=== PATIENT | female | born 1965 | race Caucasian/White ===

== ENCOUNTER 2017-05-24 05:07 | Observation (INO) | payer OTHER ==
[2017-05-17 09:49] VITALS: BMI 37.0
--- NOTE | 2017-05-17 10:22 | PAT Medication Instructions ---
Service Date May 17, 2017. Current Home Medication List Amitriptyline Hcl (Elavil), 75 MG PO HS Aspirin (Aspirin Ec), 81 MG PO QAM Bupropion (Wellbutrin Sr), 150 MG PO BID Esomeprazole Magnesium (Nexium), 40 MG PO QAM Hydrochlorothiazide (Hctz), 25 MG PO QAM Insulin Glargine (Lantus), 23 UNITS SC HS Liraglutide (Victoza), 1.2 MG INJ QAM Meloxicam (Mobic), 7.5 MG PO BID Ondansetron Hcl (Zofran), 4 MG PO Q6H PRN for N Pregabalin (Lyrica), 75 MG PO BID Ranitidine (Zantac), 300 MG PO HS Tramadol (Ultram), 50 MG PO Q6H PRN for N [Inhaler], 2 PUFFS INH PRN [Inhaler], 2 PUFFS INH PRN Medication Instructions For Your Scheduled Surgery Aspirin (Aspirin Ec), 81 MG PO QAM (check with surgeon/hogshead opener for instructions) Meloxicam (Mobic), 7.5 MG PO BID (check with surgeon for instructions) - Hold the following medications the morning of surgery: Hydrochlorothiazide (Hctz), 25 MG PO QAM - Take the following medications the morning of surgery with a sip of water: [Inhaler], 2 PUFFS INH PRN Tramadol (Ultram), 50 MG PO Q6H PRN for N (okay to take up to 4 hours prior to surgery if needed) Ondansetron Hcl (Zofran), 4 MG PO Q6H PRN for N (if needed) Pregabalin (Lyrica), 75 MG PO BID Liraglutide (Victoza), 1.2 MG INJ QAM Esomeprazole Magnesium (Nexium), 40 MG PO QAM Bupropion (Wellbutrin Sr), 150 MG PO BID - Take the following medications as scheduled the night before surgery: [Inhaler], 2 PUFFS INH PRN Tramadol (Ultram), 50 MG PO Q6H PRN for N (if needed) Ranitidine (Zantac), 300 MG PO HS Ondansetron Hcl (Zofran), 4 MG PO Q6H PRN for N (if needed) Pregabalin (Lyrica), 75 MG PO BID Insulin Glargine (Lantus), 23 UNITS SC HS Bupropion (Wellbutrin Sr), 150 MG PO BID Amitriptyline Hcl (Elavil), 75 MG PO HS If you have any questions please call us at [phone] or [phone] or [phone]
[2017-05-17 10:57] LABS: BASO % 0.8 %; BASO ABS # 0.04 K/uL (0-0.2); COMPLETE YES; EOS % 2.5 %; IG% 0.2 %; LYMPH % 24.5 %; LYMPH ABS # 1.29 K/uL (1.2-3.4); MEAN CELL VOLUME 92.2 fL (80-100); MEAN CORPUSCULAR HEMOGLOBIN 31.6 pg (25-34); MEAN CORPUSCULAR HGB CONC 34.2 g/dl (32-36); MONO % 4.9 %; NEUT % 67.1 %; PLATELET COUNT 186 K/uL (130-400); RED BLOOD COUNT 4.88 M/uL (4.2-5.4); WHITE BLOOD COUNT 5.27 K/uL (4.8-10.8)
[2017-05-17 11:05] LABS: PROTHROMBIN TIME (PATIENT) 10.8 SECONDS (9.0-12.0)
[2017-05-17 11:27] LABS: BUN/CREATININE RATIO 18.5 (10-20); CALCIUM 9.1 mg/dl (8.5-10.1); CREATININE 0.95 mg/dl (0.60-1.20); POTASSIUM 4.1 mmol/L (3.5-5.1)
[~2017-05-24] VITALS: Ht 160 cm; Wt 97.0 kg
[2017-05-24] VITALS (8 sets, daily range): BP systolic 125–178; BP diastolic 71–85; PULSE 90–102; TEMP 36.3–37; O2SAT 92–97; Ht 160 cm; Wt 97.0 kg
[~2017-05-24 05:07] MED LIST: AMT50 PO; ASPI81TA28 PO; BUPR-79 PO; HYDR25TA4 PO; INHALER INH; INSDGI SC; LIRA18IN INJ; MELO7.5T5 PO; NXM/40 PO; ONDA4TAB46 PO; PREG1CAP28 PO; RANI300T2 PO; TRAM-10 PO; [UNRECOGNIZED DRUG - REMARK] SCH
[2017-05-24] MEDS ORDERED: UMEC1INH INH (05:44)
[2017-05-24] MEDS ORDERED: VNTHFA/IN INH (05:44)
[2017-05-24] MEDS ORDERED: LACTATED RINGER'S 1000ML 1,000 ML IV SCH (06:00)
[2017-05-24] MEDS ORDERED: ENOXAPARIN 40 MG/0.4 ML SYR SQ SCH (06:00)
[2017-05-24] MEDS ORDERED: LACTATED RINGER'S 1000ML 500 ML IV ONE (06:00)
[2017-05-24] MEDS ORDERED: CEFAZOLIN 2000 MG/60 ML D5W IV SCH (06:00)
--- NOTE | 2017-05-24 06:55 | History & Physical Bridge Note ---
H&P Re-Evaluation Bridge Note: I have examined the patient, reviewed the History & Physical and in the interval since the performance of the History & Physical I have noted the following changes of clinical significance: New HA1c down to 7.2 with goal of 7. Discussed whether to proceed; I feel since she is trending in the right direction it is reasonable. She was counseled that blood sugar control over the next 6 weeks will be critical to obtaining a good result and minimizing risk of wound healing problems or infection. She states she is no longer smoking.
[2017-05-24] MEDS ORDERED: DEXAMETHASONE SOD INJ 4 MG/ML VIAL ONE (07:33)
[2017-05-24] MEDS ORDERED: PROPOFOL IV EMULSION 10 MG/ML 20 ML VIAL IV ONE ×10 (07:33→11:43)
[2017-05-24] MEDS ORDERED: LIDOCAINE HCL 2% 2 ML VIAL (20MG/ML) ONE (07:33)
[2017-05-24] MEDS ORDERED: GLYCOPYRROLATE INJ 0.2 MG/ML VIAL ONE (07:33)
[2017-05-24] MEDS ORDERED: ROCURONIUM BROMIDE 10 MG/ML 5 ML VIAL ONE (07:33)
[2017-05-24] MEDS ORDERED: NEOSTIGMINE METHYLSULFATE 5 MG/5 ML SYR ONE (07:33)
[2017-05-24] MEDS ORDERED: ONDANSETRON INJ 2 MG/ML 2 ML VIAL ONE (07:33)
[2017-05-24] MEDS ORDERED: MIDAZOLAM HCL 1 MG/ML 2ML VIAL ONE ×2 (07:34→08:47)
[2017-05-24] MEDS ORDERED: FENTANYL CITRATE INJ 50 MCG/1 ML 2 ML VIAL ONE ×2 (07:34→13:03)
[2017-05-24] MEDS ORDERED: FENTANYL CITRATE INJ 50 MCG/1 ML 2 ML VIAL IV PRN (07:45)
[2017-05-24] MEDS ORDERED: PROMETHAZINE HCL INJ 12.5 MG in SODIUM CHLORIDE 0.9% 50ML 50 ML IV PRN ×2 (07:45→12:30)
[2017-05-24] MEDS ORDERED: HYDROmorphone INJ 1 MG/ML SYR IV PRN (07:45)
[2017-05-24] MEDS ORDERED: LIDOCAINE/EPINEPHRINE 1% 20 ML VIAL ONE (07:45)
[2017-05-24] MEDS ORDERED: HYDROmorphone INJ 2 MG/ML SYR/VIAL ONE (07:45)
[2017-05-24] MEDS ORDERED: ATROPINE SULFATE 0.1 MG/ML 5ML SYR IV PRN (07:45)
[2017-05-24] MEDS ORDERED: ONDANSETRON INJ 2 MG/ML 2 ML VIAL IV PRN ×2 (07:45→12:30)
[2017-05-24] MEDS ORDERED: EpHEDrine SULFATE INJ 50 MG/ML AMP IV PRN (07:45)
[2017-05-24] MEDS ORDERED: BUPIVACAINE 0.25% 30 ML VIAL ONE (07:46)
[2017-05-24] MEDS ORDERED: REMIFENTANIL 1 MG VIAL ONE ×3 (07:53→07:54)
[2017-05-24] MEDS ORDERED: KETAMINE HCL INJ 50 MG/ML 10 ML VIAL ONE (08:10)
[2017-05-24] MEDS ORDERED: WATER, STERILE FOR INJ 10 ML VIAL ONE (11:46)
[2017-05-24] MEDS ORDERED: D5W AND 1/2NSS + 20MEQ KCL 1,000 ML IV SCH (12:25)
--- NOTE | 2017-05-24 12:25 | [facility] Post Operative Brief Note ---
Immediate Operative Summary Operative Date May 24, 2017. Pre-Operative Diagnosis Bilateral Symptomatic Macromastia Post-Operative Diagnosis Same as preoperative Procedure(s) Performed Bilateral Breast Reduction Surgeon Dr. Marianne Guerrero Generator Technician Surgeon(s) None per surgeon Estimated Blood Loss 50ml Findings right NAC mildly venous congested; sutures released and loose approximation performed with good perfusion, left NAC pink and viable Specimens A.) Left Breast Tissue, weight= 1036 grams B.) Right Breast Tissue, weight = 936 grams Drains IZABELA x2 Anesthesia GET Complication(s) None Disposition Recovery Room / PACU
[2017-05-24] MEDS ORDERED: DiphenhydrAMINE HCL 50 MG/ML VIAL IV PRN (12:30)
[2017-05-24] MEDS ORDERED: OXYCODONE/ACETAMINOPHEN 5-325 TAB PO PRN (12:30)
[2017-05-24] MEDS ORDERED: ALBUTEROL HFA 8 GM INHALER INH PRN (12:30)
[2017-05-24] MEDS ORDERED: ONDANSETRON 4 MG TAB PO PRN (12:30)
[2017-05-24] MEDS ORDERED: MoRPHine SULFATE 4 MG/ML 1 ML CARP\\VIAL IV PRN ×2 (12:30)
[2017-05-24] MEDS ORDERED: OXAZEPAM 10MG CAP PO PRN (12:30)
[2017-05-24] MEDS ORDERED: TRAMADOL HCL 50 MG TAB PO PRN (12:30)
[2017-05-24] MEDS ORDERED: ACETAMINOPHEN 325 MG TAB PO PRN (12:30)
[2017-05-24] MEDS ORDERED: MoRPHine SULFATE 2 MG/ML CARP IV PRN (12:30)
[2017-05-24] MEDS ORDERED: HYDROmorphone INJ 1 MG/ML SYR ONE (13:03)
[2017-05-24] MEDS ORDERED: IV FLUIDS COMPLETED PRN (13:45)
[2017-05-24] MEDS ORDERED: NURSING VERBAL MED ORDER ONE (14:00)
--- NOTE | 2017-05-24 14:03 | Anesthesiology Progress Note ---
Anesthesia Post Op Note Date & Time May 24, 2017 at 14:03 Vital Signs Pain Intensity: 2 Vital Signs Past 12 Hours Date Time Temp Pulse Resp B/P (MAP) Pulse Ox O2 Delivery O2 Flow Rate FiO2 05/24/17 13:55 94 10 120/73 93 Nasal Cannula 2 05/24/17 13:45 92 12 126/73 95 Nasal Cannula 2 05/24/17 13:35 91 12 125/74 97 Nasal Cannula 2 05/24/17 13:25 95 22 135/87 97 Nasal Cannula 2 05/24/17 13:15 94 15 131/79 95 Nasal Cannula 2 05/24/17 13:05 94 17 148/77 96 Nasal Cannula 2 05/24/17 12:55 100 17 148/77 93 Nasal Cannula 2 05/24/17 12:45 36.2 94 17 143/81 95 Nasal Cannula 2 05/24/17 05:49 36.6 90 18 178/82 (114) 97 Room Air Notes Mental Status: alert / awake / arousable, participated in evaluation Pt Amnestic to Procedure: Yes Nausea / Vomiting: adequately controlled Pain: adequately controlled Airway Patency, RR, SpO2: stable & adequate BP & HR: stable & adequate Hydration State: stable & adequate Anesthetic Complications: no major complications apparent
[2017-05-24] MEDS ORDERED: GLUCOSE 10 TABS/TUBE PO PRN ×2 (14:15→20:45)
[2017-05-24] MEDS ORDERED: GLUCAGON FOR INJ 1 MG VIAL SQ PRN ×2 (14:15→20:45)
[2017-05-24] MEDS ORDERED: GLUCOSE 40% GEL 15 GM TUBE PO PRN ×2 (14:15→20:45)
[2017-05-24] MEDS ORDERED: DEXTROSE 50% 50 ML SYR IV PRN ×2 (14:15→20:45)
[2017-05-24] MEDS: NSS + 20MEQ KCL 1000ML 1,000 ML IV SCH (16:15)
[2017-05-24] MEDS: CEFAZOLIN IV 2,000 MG in DEXTROSE 5% 50ML 50 ML IV SCH (16:16)
--- NOTE | 2017-05-24 18:15 | Progress Note ---
Progress Note Date of Service May 24, 2017. Progress Note PO check Doing ok. Pain controlled, complains of nausea afebrile VSS dressings c/d/i bilaterally, scant drainage around right NAC NAC pink and viable, with sensation bilaterally JPs right 10/left 20 cc serosanguinous stable post op drains out in am will consult hospitalist for assistance with blood glucose control
--- NOTE | 2017-05-24 20:40 | Medical Consult ---
Consultation Note Date of Service May 24, 2017. Consultation Note HOSPITALIST CONSULT NOTE: DATE OF CONSULT: 05/24/17 DATE OF ADMISSION: 05/24/17 REASON FOR CONSULT: Post op management for DM in patient with B/L breast reduction HPI This is a 51 year old F with PMH of DM, IDDM, COPD, GED, HLD is admitted under plastic surgery for B/L breast reduction surgery. She is POD # 0 . Pain is controlled. Does have some hand numbness from anaesthesia effect Had 2-3 episodes of vomiting today- better now. No abdominal pain, fever, chills. We have been consulted for DM management post operatively PMH DM, IDDM, HTN, HLP, COPD, Mild,GERD, Depression PSH C section, cholecystectomy, cath , EGD, lap adhesiolysis, Total ab hysterectomy , salpingo oopherectomy SOCIAL HISTORY Ex smoker, no alcohol abuse FAMILY HISTORY Non contributory REVIEW OF SYSTEM Negative except mentioned in HPI. MEDICATIONS Reviewed ALLERGIES Reviewed PHYSICAL EXAMINATION Gen- AAOX3, no distress HEENT- AT/NC, no discharge from eyes/nose/ear Neck- Short neck Lungs- Back- no wheezing, rhonchi, rales Heart- S1, S2 normal Chest- B/L breast reduction surgery Ext- no edema Abd- soft, non tender, non distended, BS present ASSESSMENT AND PLAN S/P BILATERAL BREAST REDUCTION SURGERY POD # 0. Post operative nausea, vomiting present- IV zofran PRN -Pain mx, wound care per primary team DM, IDDM -At home on lantus 23 units and victoza -Continue with basal insulin, ISS, Accuchecks HTN-Stable -Continue home meds HYPERLIPIDEMIA -Continue statin COPD No signs of exacerbation OBESITY DVT PROPHYLAXIS -SCDS/TEDS as surgery today DISPOSITION Per primary team
[2017-05-24] MEDS ORDERED: AMITRIPTYLINE HCL 25 MG TAB PO SCH (21:00)
[2017-05-24] MEDS ORDERED: INSULIN GLARGINE SOLOSTAR 100 UNITS/ML 3 ML PEN SC SCH (21:00)
[2017-05-24] MEDS: PREGABALIN 75 MG CAP PO SCH (21:08)
[2017-05-24] MEDS: BuPROPion SR 150 MG TABCR PO SCH (21:08)
[2017-05-24] MEDS: INSULIN ASPART 100 UNITS/ML 3 ML PEN SC SCH (21:17)
[2017-05-24] MEDS: OXYCODONE/ACETAMINOPHEN 5-325 TAB PO PRN ×2 (21:23→21:31)
[2017-05-25] MEDS: CEFAZOLIN IV 2,000 MG in DEXTROSE 5% 50ML 50 ML IV SCH ×2
[2017-05-25 03:12] VITALS: BP 122/81; PULSE 98; TEMP 36.6; O2SAT 94
[2017-05-25] MEDS ORDERED: CEPH500C2 PO (06:47)
[2017-05-25] MEDS ORDERED: DFL150 PO (06:51)
--- NOTE | 2017-05-25 06:54 | Discharge Instructions ---
Discharge Instructions Date of Service May 25, 2017. Admission Reason for Admission: Breast Hypertrophy In Female Discharge Discharge Diagnosis / Problem: breast hypertrophy Discharge Goals Goal(s): Decrease discomfort, Improve function Activity Recommendations Activity Limitations: as noted below . Instructions / Follow-Up Instructions / Follow-Up ACTIVITY RECOMMENDATIONS: __Normal activities _x_No bending, lifting or straining __No driving _x_Driving allowed when you are off pain medications _x_Walking permitted __You should have help at home for ___ days DRESSINGS: __No dressings required _x_Keep dressings dry/in place until first office visit __Remove dressings ___ and leave dressings off __Apply ice ___ days __Remove dressings and reapply garment __Apply antibiotic ointment (Bacitracin, Neosporin, etc) to wounds 3-4 times/ day for 10 days BATHING: __Keep dressings dry _x_Sponge bathing permitted __Showering permitted _x_No swimming, hot tubs or soaking in a tub MEDICATIONS: Resume previous medications unless instructed otherwise by your surgeon. _x_Do not use aspirin, Motrin, Advil or Ibuprofen as these may promote bleeding. Please use Tylenol. _x_Prescription(s) provided: Percocet script provided pre op in office, Keflex sent to pharmacy, Diflucan prescription if needed OTHER INSTRUCTIONS: __Record drain output 2-3 times per day SPECIAL CARE INSTRUCTIONS: * It is normal to have a mild fever after surgery. If your temperature is higher than 101.5 degrees F, please call the office at [phone]. * Constipation is a typical side effect of pain medication. An over-the- counter stool softener will help relieve this. * Leaking around surgical drains may occur and should not cause concern. Sometimes these drains become clogged. If this happens, remove the bulb and milk the clot out of the tube, then replace the bulb. * Drainage from wounds after liposuction is normal and should be expected. Garments will become soiled. You should protect furniture and bedding. This drainage should mostly subside within 2-3 days. Leave garments in place unless instructed to remove them. * If you have unusual drainage from a wound or are concerned you have an infection or have any questions or concerns, please call the office at [phone]. FOLLOW UP VISIT: If not already scheduled, please call the office, , when you return home after surgery to schedule an appointment to be seen in __1_ days. Current Hospital Diet Patient's current hospital diet: Diabetes Type 2 Diet Discharge Diet Recommended Diet: Diabetes Type 2 Diet Procedures Procedures Performed: Bilateral Breast Reduction Pending Studies Studies pending at discharge: no Medical Emergencies . Who to Call and When: Medical Emergencies: If at any time you feel your situation is an emergency, please call 911 immediately. . Non-Emergent Contact Non-Emergency issues call your: Primary Care Provider (for any health concerns) , Surgeon (for concerns related to incision/surgery) Call Non-Emergent contact if: temperature is above 101.5 . "Provider Documentation" section prepared by Marianne Guerrero. . VTE Core Measure Inpt VTE Proph given/why not?: Enoxaparin (Lovenox) [place] Drug Monitoring Program Search Results: patient reviewed within database, no issues identified
--- NOTE | 2017-05-25 07:24 | Progress Note ---
Progress Note Date of Service May 25, 2017. Progress Note POD #1 Doing well. Pain controlled afebrile VSS bilateral breasts soft without hematoma NACs pink and viable with intact sensation bilaterally JPs 60/100 serosanguinous since OR blood glucose in low 200's doing well postop will plan to discharge patient to continue acuchecks 4 times daily-if routinely >150, needs to call PCP for insulin adjustment in postop period scripts for precious dang provided follow up in office tomorrow
[2017-05-25 07:41] VITALS: BP 130/83; PULSE 98; TEMP 36.9; O2SAT 95
[2017-05-25] MEDS: NSS + 20MEQ KCL 1000ML 1,000 ML IV SCH ×2 (08:00)
[2017-05-25 08:12] VITALS: O2SAT 95
[2017-05-25] MEDS: BuPROPion SR 150 MG TABCR PO SCH (08:43)
[2017-05-25] MEDS: PREGABALIN 75 MG CAP PO SCH (08:46)
[2017-05-25] MEDS: INSULIN ASPART 100 UNITS/ML 3 ML PEN SC SCH (08:52)
[2017-05-25] MEDS ORDERED: HYDROCHLOROTHIAZIDE 25 MG TAB PO SCH (09:00)
[2017-05-25] MEDS ORDERED: ENOXAPARIN 40 MG/0.4 ML SYR SQ SCH (09:00)
[2017-05-25] MEDS ORDERED: MULTIVITAMIN TAB PO SCH (09:00)
[2017-05-25 10:09] VITALS: BP 130/83; PULSE 98; TEMP 36.9; O2SAT 95
--- NOTE | 2017-05-25 10:12 | Anesthesiology Progress Note ---
Anesthesia Post Op Note Date & Time May 25, 2017 at 10:09 Vital Signs Pain Intensity: 0.0 Vital Signs Past 12 Hours Date Time Temp Pulse Resp B/P (MAP) Pulse Ox O2 Delivery O2 Flow Rate FiO2 05/25/17 08:12 95 Room Air 05/25/17 07:50 Room Air 05/25/17 07:41 36.9 98 16 130/83 (99) 95 Room Air 05/25/17 03:12 36.6 98 16 122/81 (95) 94 Room Air 05/24/17 23:54 Room Air 05/24/17 22:57 36.3 98 16 129/81 (97) 93 Room Air Notes Mental Status: alert / awake / arousable, participated in evaluation Pt Amnestic to Procedure: Yes Nausea / Vomiting: adequately controlled Pain: adequately controlled Airway Patency, RR, SpO2: stable & adequate BP & HR: stable & adequate Hydration State: stable & adequate Anesthetic Complications: no major complications apparent Anesthetic Complications: Pt with complaints of numbness/tingling sensation along her thumb, index and middle fingers of her right hand. Numbness has improved since yesterday. Pt reports that sensation is different from her underlying peripheral neuropathy. Motor strenght is intact. Discussed with Dr. Guerrero and since patient will follow up in her office tomorrow, if symptoms is not improving, Dr. Guerrero will have patient follow up with Dr. Hong, her neurologist. Discussed with patient as well and patient agrees with plan.
--- NOTE | 2017-05-25 18:43 | DISCHARGE SUMMARY ---
ADMISSION DIAGNOSIS: Bilateral symptomatic macromastia. DISCHARGE DIAGNOSIS: Same. SECONDARY DIAGNOSES: Diabetes mellitus, obesity, history of tobacco use, peripheral neuropathy, history of myotonic dystrophy. HOSPITAL COURSE: The patient was admitted on 05/24/2017 to undergo elective bilateral reduction mammoplasty. The procedure was performed and the patient was admitted for observation to the med/surg floor postoperatively. Overall her hospital course was relatively uneventful, however she did complain of some discomfort in the median nerve distribution of her right hand which was improving at the time of discharge. Additionally, she had multiple elevated blood glucose readings. A hospitalist was consulted to assist with management of her insulin. She was discharged to home with a prescription for pain medication that had been provided in the office, prescription for Keflex for antibiotic prophylaxis given her obesity and diabetes and Diflucan in the event of a yeast infection. Otherwise she is instructed to resume her home medications as noted on the discharge instructions. She will followup in my office on May 26, 2017. At the time of discharge both areolar complexes were pink and viable. There was no evidence of breast hematoma.
--- NOTE | 2017-05-26 07:09 | OPERATIVE REPORT ---
DATE OF OPERATION: 05/24/2017 PREOPERATIVE DIAGNOSIS: Bilateral symptomatic macromastia. POSTOPERATIVE DIAGNOSIS: Same. PROCEDURE: Bilateral reduction mammoplasty. SURGEON: Dr. Marianne Guerrero. ENTRY SPECIALIST: None. ANESTHESIA: General. COMPLICATIONS: None. INDICATION FOR THE PROCEDURE: The patient is a 51-year-old female who presented to my office with complaints of back, neck and shoulder pain as well as headaches and intertrigo due to her large breasts. After she was able to quit smoking, I felt she would be a good candidate for reduction mammoplasty. We discussed options for breast reduction surgery and agreed on bilateral reduction with inferior pedicle technique. BRIEF DESCRIPTION OF THE PROCEDURE: Risks, benefits, and alternatives of the procedure were explained to the patient, who agreed and signed consent. She was identified and marked in the preoperative holding area and brought to the operating room, where she was positioned supine and placed under general anesthesia without incident. Surgical site markings were again assessed and an 8-mm pedicle was marked. I began with the larger left side. 1% lidocaine with epinephrine was used to anesthetize the planned incisions. A breast tourniquet was created using a lap sponge and Monse clamp. A 38-mm cookie cutter was used to circumscribe the nipple-areolar complex. This incision was then made using a 15 blade scalpel to circumscribe the nipple and the previously designed 8-cm pedicle was incised and deepithelialized. Once this was accomplished, hemostasis was achieved and I began dissection of the pedicle beginning first with the medial aspect followed by a lateral and superior aspects. Bovie electrocautery was used to perform dissection down to chest wall, taking care not to undermine the pedicle. Hemostasis was again achieved throughout the dissection. At this point, a 15 blade scalpel was used to make the inframammary fold incision medially and dissection was carried along the chest wall to the superior incision. Superior incision was then made using 15 blade scalpel and deepened using electrocautery through subcutaneous tissue and breast parenchyma. Similarly, this was performed on the lateral aspect as well. I did extend the incision quite far laterally in order to accommodate a significant amount of very lateral breast tissue. Again, a 15 blade scalpel was used to make the inframammary fold incision and the incision was deepened through subcutaneous fat and breast parenchyma down to chest wall. Care was taken to leave some fat and fascia on the pectoralis muscle in order to protect the T4 intercostal nerve. Finally, the incision was extended around the keyhole portion and the breast specimen was passed off for weighing. Additional resection was undertaken until I felt I was adequately able to reduce the breast. On the left side, the total resection weight was 1036 grams. After achieving hemostasis, wound was irrigated with normal saline. 0.25% Marcaine plain was used to anesthetize the incisions as well as the pectoralis fascia. I then performed closure. I initially tried to advance the nipple-areolar complex into the keyhole, but due to some breast parenchymal loss in the area of the nipple-areolar complex, I was unable to adequately perform advancement of this without having the pedicle kinked. I attempted multiple options for wound closure and ultimately settled on using 2-0 Vicryl suture to perform plication of the pedicle in order to reposition the nipple and allow easier inset. Once this was accomplished, a 2-0 Vicryl suture was used to inset the nipple-areolar complex and a 2-0 Vicryl suture was placed at T-junction. Wound closure was then begun first medially to mid breast and then laterally to mid breast using 2-0 Vicryl deep dermal sutures. The nipple-areolar complex superficial dermis and vertical limbs of superficial dermis was closed using 3-0 PDS interrupted sutures and the inframammary fold incision was closed using 2-0 PDO running superficial dermal Quill suture. The subcuticular layer was closed using 3-0 Monocryl running subcuticular suture. Dermabond Prineo was applied to the inframammary fold in a vertical limb. At the end of completion of the first breast, the nipple-areolar complex was pink and viable. A similar procedure was undertaken on the right side. Plication of the pedicle was performed on this side as well. The nipple-areolar complex remained pink and viable throughout until the time of closing. At the time of closing, there was noted to be venous congestion of the nipple and areola and therefore, the sutures were released and a more loosely approximated running Monocryl suture was placed. Xeroform was placed over both nipple-areolar complexes and dry dressings and a surgical bra were placed. It should be noted that a 15 Maori IZABELA drain was brought out through a separate stab incision on both sides prior to beginning wound closure. The procedure was tolerated well. The patient was awakened and transferred to recovery in satisfactory condition. I attest to the content of the Intraoperative Record and any orders documented therein. Any exception s are noted below.
== END 2017-05-25 11:52 | disposition home or self-care (01) ==
LOC: C.ACU 05:07 → C.MSW 12:31 → CANRESERV 13:40 → ENRESERV 13:40
PROVIDERS: ADMIT Plastic Surgery; ATTEND Plastic Surgery
DX: N62 Hypertrophy of breast (principal); M54.2 Cervicalgia; L30.4 Erythema intertrigo; E11.9 Type 2 diabetes mellitus without complications; E66.9 Obesity, unspecified; Z90.49 Acquired absence of other specified parts of digestive tract; Z90.89 Acquired absence of other organs; Z90.710 Acquired absence of both cervix and uterus; Z82.3 Family history of stroke; Z83.3 Family history of diabetes mellitus; Z79.82 Long term (current) use of aspirin; E78.00 Pure hypercholesterolemia, unspecified; J44.9 Chronic obstructive pulmonary disease, unspecified; Z79.4 Long term (current) use of insulin; I25.10 Atherosclerotic heart disease of native coronary artery without angina pectoris; K21.9 Gastro-esophageal reflux disease without esophagitis; M19.90 Unspecified osteoarthritis, unspecified site; G71.11 Myotonic muscular dystrophy; F32.9 Major depressive disorder, single episode, unspecified

== ENCOUNTER 2019-10-16 05:14 | Inpatient (IN) ==
--- NOTE | 2019-10-01 15:36 | PAT Medication Instructions ---
Medication Instructions Date of Service October 01, 2019 Home Medications albuterol sulfate [Ventolin HFA] 1 puff INHALATION Q6H PRN aspirin 81 mg PO QAM baclofen 10 mg PO TID dulaglutide [Trulicity] 1.5 mg SUBCUT WK duloxetine 60 mg PO QPM empagliflozin [Jardiance] 10 mg PO QAM famotidine 40 mg PO HS hydrochlorothiazide 25 mg PO QAM hydroxyzine HCl 25 mg PO HS meloxicam 7.5 mg PO BID omeprazole 40 mg PO QAM trazodone 50 mg PO HS Other Notes If you have any questions please call us at [phone] or [phone] or [phone] or [phone]
--- NOTE | 2019-10-02 12:56 | Anesthesiology Consultation ---
Date of Service October 02, 2019 Assessment & Plan (1) Encounter for pre-operative examination: - Awaiting PCP office visit scheduled 10/07 (Dr. Mackey/S). - Awaiting most recent neurology office visit note ([facility]/Dr. Hong). - Cardiology: 06/28/18: atypical, non-cardiac chest pain (s/p unremarkable cardiac cath in 2014 and stress test in 2017). [Patient denies cardiopulmonary complaints at subsequent PAT visit 10/02/19]. Advised to followup PRN. - Check BSG AM DOS - S/P B/L breast reduction: 11/24/16: Grade view 1, MAC#3, ETT 7.5 at [facility] - [facility] instructions: per patient, advised to continue perioperatively per surgeon Chart Review Chart Review: Patient seen in Pre Admission Testing Teaching & Discussion Pre-Anesthesia Teaching/Discussion Notes: Instructed NPO after midnight before surgery,except medications with 15 cc of water. Medication instructions provided according to the PAT guidelines. History Surgery Operation Date: 10/16/19 11:25 Proposed Procedures p C5-C7 Anterior Cervical Discectomy and Fusion with Spinal Cord Monitoring - Case Walker, Height/Weight Height: 5 ft 3 in Weight: 85 kg Allergies Allergy/AdvReac Type Severity Reaction Status Date / Time adhesive Allergy Mild RED WITH Verified 09/20/19 11:21 TAPE Sulfa (Sulfonamide Allergy Unknown UNKNOWN Verified 09/20/19 11:21 Antibiotics) gabapentin AdvReac Unknown MOOD Verified 09/20/19 11:21 CHANGES hydrocodone AdvReac Unknown CHEST PAIN Verified 09/20/19 11:21 Ntjpyij-Olk-Bfh Reductase AdvReac Unknown NECK PAIN Verified 09/20/19 11:21 Inhibitor Medications Home Medications Medication Instructions Recorded Confirmed Last Taken albuterol sulfate [Ventolin HFA] 1 puff INHALATION Q6H PRN 09/20/19 09/20/19 Unknown aspirin 81 mg PO QAM 09/20/19 09/20/19 Unknown dulaglutide [Trulicity] 1.5 mg SUBCUT WK 09/20/19 09/20/19 Unknown duloxetine 60 mg PO QPM 09/20/19 09/20/19 Unknown empagliflozin [Jardiance] 10 mg PO QAM 09/20/19 09/20/19 Unknown famotidine 40 mg PO HS 09/20/19 09/20/19 Unknown hydrochlorothiazide 25 mg PO QAM 09/20/19 09/20/19 Unknown hydroxyzine HCl 25 mg PO HS 09/20/19 09/20/19 Unknown meloxicam 7.5 mg PO BID 09/20/19 09/20/19 Unknown omeprazole 40 mg PO QAM 09/20/19 09/20/19 Unknown trazodone 50 mg PO HS 09/20/19 09/20/19 Unknown Past Medical History Medical History COPD (chronic obstructive pulmonary disease) stable Diabetes mellitus, type 2 NIDDM + injectable GERD (gastroesophageal reflux disease) controlled Hyperlipidemia no meds Muscular dystrophy 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 Hong) Obesity Osteoarthritis Temporomandibular joint disorder occasional clicking Exercise / Class Metabolic Activity III < 4 Walking/Shop/Light housework (uses cane occasionally to aid with balance) Past Family History Family History Sister Family history of diabetes mellitus Mother Family history of diabetes mellitus Brother Family history of diabetes mellitus Past Surgical History Surgical History H/O skin graft Lt breast History of appendectomy History of bilateral breast reduction surgery B/L breast reduction: 11/24/16: Grade view 1, MAC#3, ETT 7.5 at [facility] History of cardiac cath 2014= no stents History of carpal tunnel release Rt History of section x 2 History of cholecystectomy History of colonoscopy History of D&C History of esophagogastroduodenoscopy (EGD) History of tonsillectomy History of tooth extraction History of total abdominal hysterectomy and bilateral salpingo-oophorectomy Past Anesthesia History No Family Hx of Anesthesia Complications and Other "Slow to wake" up after anesthesia with single surgery/no similar issues with other surgeries/anesthesia History of PONV No Hx of Motion Sickness and History of PONV STOP BANG Total 2 Social History Smoking Status: Current every day smoker tobacco type: cigarettes Smoking cigarettes per day: 1/2 ppd x 20+ years Do You Dip or Chew Tobacco: No Hx Alcohol Use: Yes alcohol intake frequency: holidays/special occasions only Hx Substance Use: No substance use type: does not use Review of Systems Reflux controlled. Patient denies chest pain, shortness of breath, cough, wheezing, palpitations. Physical Exam Vital Signs VITALS BP 116/76 P 82 TEMP 98.0 SP02 94%RA RESP 16 PHYSICAL Mildly decreased cervical extension. Full TMJ range of motion. TMD 3 finger breaths Mallampati Score 2 Dentition: edentulous, full upper denture Lungs: clear throughout to auscultation Cardiac: regular rate and rhythm, no murmurs noted Spine: normal Carotid arteries: negative bruit Extremities: no edema Testing Laboratory Results 10/02/19 13:50 10/02/19 13:50 PT 10.8 Seconds (9.0-12.0) 10/02/19 13:50 INR 1.1 (0.9-1.1) 10/02/19 13:50 APTT 27.1 Seconds (21.0-31.0) 10/02/19 13:50 Hemoglobin A1c 8.3 % (4.5-5.6) H 10/02/19 13:50 Urine Color Yellow 10/02/19 Unknown Urine Appearance Clear (Clear) 10/02/19 Unknown Urine pH 6.5 (4.5-7.5) 10/02/19 Unknown Ur Specific Dodson 1.035 (1.000-1.030) H 10/02/19 Unknown Urine Protein Negative (Negative) 10/02/19 Unknown Urine Glucose (UA) 3+ (Negative) H 10/02/19 Unknown Urine Ketones Negative (Negative) 10/02/19 Unknown Urine Nitrite Negative (Negative) 10/02/19 Unknown Ur Leukocyte Esterase Negative (Negative) 10/02/19 Unknown Blood Type A Positive 10/02/19 13:50 Antibody Screen NEGATIVE 10/02/19 13:50 *Surgeon office made aware of elevated hgba1c* Electrocardiogram Date: 10/02/19 NSR at 84bpm. Prolonged QT. Chest X-Ray Date: 11/16/18 Minimal atherosclerotic calcifications of the aorta. Lungs are clear. No infiltrate or consolidation. Stable chest x-ray without acute cardiopulmonary process. Stress Test Date: 03/14/17 Type: exercise Stress ECHO/EKG negative for inducible ischemia. 85% MPHR. 6.4 METS. No significant arrhythmias noted. No chest pain. EF 70%. No significant valvular disease. Nondilated cardiac chambers. Occasional PAC's with stress. Cardiac Catheterization Date: 11/05/14 Coronary arteries are angiographically normal. LVEF 50-70%. LV segmental wall motion is normal. Diagnosis: non-cardiac chest pain.
--- NOTE | 2019-10-02 13:02 | PAT Medication Instructions ---
Medication Instructions Date of Service October 02, 2019 Home Medications albuterol sulfate [Ventolin HFA] 1 puff INHALATION Q6H PRN aspirin 81 mg PO QAM dulaglutide [Trulicity] 1.5 mg SUBCUT WK duloxetine 60 mg PO QPM empagliflozin [Jardiance] 10 mg PO QAM famotidine 40 mg PO HS hydrochlorothiazide 25 mg PO QAM hydroxyzine HCl 25 mg PO HS meloxicam 7.5 mg PO BID omeprazole 40 mg PO QAM trazodone 50 mg PO HS Continue as directed dulaglutide [Trulicity] 1.5 mg SUBCUT WK ASK your surgeon for instructions meloxicam 7.5 mg PO BID ASK your prescriber and surgeon aspirin 81 mg PO QAM DO NOT take the morning of surgery empagliflozin [Jardiance] 10 mg PO QAM hydrochlorothiazide 25 mg PO QAM Take morning of surgery With a small sip of water, OTHERWISE NOTHING TO EAT OR DRINK AFTER MIDNIGHT: albuterol sulfate [Ventolin HFA] 1 puff INHALATION Q6H PRN (use if needed; please bring with you to hospital day of surgery if possible) omeprazole 40 mg PO QAM Take evening before surgery albuterol sulfate [Ventolin HFA] 1 puff INHALATION Q6H PRN (if needed) duloxetine 60 mg PO QPM famotidine 40 mg PO HS hydroxyzine HCl 25 mg PO HS trazodone 50 mg PO HS Other Notes If you have any questions please call us at [phone] or [phone] or [phone] or [phone]
[2019-10-02 15:41] LABS: Basophils # (auto) 0.04 K/uL (0-0.2); Basophils % (auto) 0.5 %; Eosinophils % (auto) 1.3 %; Hematocrit (blood only) 47.8 % (37-47); Hemoglobin 16.2 g/dL (12.0-16.0); Immature Granulocytes # (auto) 0.01 K/uL (0.00-0.02); Immature Granulocytes % (auto) 0.1 %; Lymphocytes # (auto) 2.43 K/uL (1.2-3.4); Lymphocytes % (auto) 32.7 %; Mean Corpuscular Hemoglobin 32.5 pg (25-34); Mean Corpuscular Hgb Conc 33.9 g/dL (32-36); Mean Platelet Volume 12.9 fL (7.4-10.4); Monocytes # (auto) 0.33 K/uL (0.11-0.59); Monocytes % (auto) 4.4 %; Neutrophils # (auto) 4.53 K/uL (1.4-6.5); Platelet Count 178 K/uL (130-400); RDW Coefficient of Variation 13.5 % (11.5-14.5); RDW Standard Deviation 47.7 fL (36.4-46.3); Red Blood Count 4.98 M/uL (4.2-5.4); White Blood Count 7.44 K/uL (4.8-10.8)
[2019-10-02 15:48] LABS: BUN Creatinine Ratio 10.4 (10-20); Calcium 9.1 mg/dl (8.5-10.1); Creatinine Clr Calc Pharmacy 67.1 ml/min; Est GFR (African American) 74.9; Est GFR (Non-African American) 64.6; Potassium 3.5 mmol/L (3.5-5.1)
[2019-10-02 15:53] LABS: Appearance Urine Clear (Clear); Bilirubin Urine Negative (Negative); Blood Urine Negative (Negative); Color Urine Yellow; Glucose Urine UA 3+ (Negative); Ketones Urine Negative (Negative); Leukocyte Esterase Urine Negative (Negative); Nitrite Urine Negative (Negative); Protein Urine Negative (Negative); Specific Gravity Urine 1.035 (1.000-1.030); Urobilinogen Urine Negative (Negative); pH Urine 6.5 (4.5-7.5)
[2019-10-02 15:56] LABS: INR 1.1 (0.9-1.1); Partial Thromboplastin Time 27.1 Seconds (21.0-31.0); Prothrombin Time 10.8 Seconds (9.0-12.0)
[2019-10-03 06:03] LABS: Estimated Average Glucose 192 mg/dl; Hemoglobin A1C 8.3 % (4.5-5.6)
[2019-10-16] MEDS ORDERED: ACETAMINOPHEN 500 MG TAB PO SCH (06:00)
[2019-10-16] MEDS ORDERED: GABAPENTIN 900 MG DOSE PO SCH (06:00)
[2019-10-16] MEDS ORDERED: CEFAZOLIN 2000MG 2,000 MG/15 ML SYR IV SCH (06:00)
[2019-10-16] MEDS ORDERED: CeleBREX 200 MG CAP PO SCH (06:00)
[2019-10-16] MEDS ORDERED: LR 15ML/HR IV SCH (06:00)
[2019-10-16] MEDS ORDERED: BACITRACIN INJ 50,000 UNIT VIAL ONE (07:07)
[2019-10-16] MEDS ORDERED: LIDOCAINE HCL 2% 2 ML VIAL/AMP(20MG/ML) INFIL ONE (07:18)
[2019-10-16] MEDS ORDERED: DEXAMETHASONE SOD INJ 4 MG/ML VIAL ONE (07:18)
[2019-10-16] MEDS ORDERED: PROPOFOL IV EMULSION 10 MG/ML 20 ML VIAL IV ONE (07:18)
[2019-10-16] MEDS ORDERED: NEOSTIGMINE METHYLSULFATE 1 MG/ML 10ML VIAL ONE (07:18)
[2019-10-16] MEDS ORDERED: ROCURONIUM BROMIDE 10 MG/ML 5 ML VIAL ONE (07:18)
[2019-10-16] MEDS ORDERED: ONDANSETRON INJ 2 MG/ML 2 ML VIAL ONE ×2 (07:18→08:13)
[2019-10-16] MEDS ORDERED: MIDAZOLAM HCL 1 MG/ML 2ML VIAL ONE (07:18)
[2019-10-16] MEDS ORDERED: fentaNYL citrate 100 MCG/2 ML VIAL ONE (07:19)
--- NOTE | 2019-10-16 07:35 | History & Physical Bridge Note ---
Date of Service October 16, 2019 History & Physical Bridge Note I have examined the patient, reviewed the History & Physical and in the interval since the performance of the History & Physical I have noted the following changes of clinical significance: no changes noted
--- NOTE | 2019-10-16 07:36 | History & Physical Report ---
Date of Service October 16, 2019 Assessment & Plan (1) Cervical stenosis of spinal canal: Anterior cervical discectomy and fusion C5-C7 Present on Admission?: Yes History of Present Illness Chief Complaint: Neck and arm pain Primary Care Provider: Brian Mackey PA-C This is a 54-year-old female presents with chronic persistent neck and arm pain. After failing extensive course of nonoperative care is here for surgical intervention. Allergies Allergy/AdvReac Type Severity Reaction Status Date / Time adhesive Allergy Mild RED WITH Verified 10/16/19 05:48 TAPE Sulfa (Sulfonamide Allergy Unknown UNKNOWN Verified 10/16/19 05:48 Antibiotics) gabapentin AdvReac Unknown MOOD Verified 10/16/19 05:48 CHANGES hydrocodone AdvReac Unknown CHEST PAIN Verified 10/16/19 05:48 Aycrqtu-Ucg-Aby Reductase AdvReac Unknown NECK PAIN Verified 10/16/19 05:48 Inhibitor Home Medications Home Medications Medication Instructions Recorded Confirmed Type albuterol sulfate [Ventolin HFA] 1 puff INHALATION Q6H PRN 09/20/19 10/16/19 History aspirin 81 mg PO QAM 09/20/19 10/16/19 History dulaglutide [Trulicity] 1.5 mg SUBCUT WK 09/20/19 10/16/19 History duloxetine 60 mg PO QPM 09/20/19 10/16/19 History empagliflozin [Jardiance] 10 mg PO QAM 09/20/19 10/16/19 History famotidine 40 mg PO HS 09/20/19 10/16/19 History hydrochlorothiazide 25 mg PO QAM 09/20/19 10/16/19 History hydroxyzine HCl 25 mg PO HS 09/20/19 10/16/19 History meloxicam 7.5 mg PO BID 09/20/19 10/16/19 History omeprazole 40 mg PO QAM 09/20/19 10/16/19 History trazodone 50 mg PO HS 09/20/19 10/16/19 History pregabalin [Lyrica] 25 mg PO TID 10/16/19 10/16/19 History Past Med/Surg History Medical History COPD (chronic obstructive pulmonary disease) stable Diabetes mellitus, type 2 NIDDM + injectable GERD (gastroesophageal reflux disease) controlled Hyperlipidemia no meds Muscular dystrophy 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 Hong) Obesity Osteoarthritis Temporomandibular joint disorder occasional clicking Surgical History H/O skin graft Lt breast History of appendectomy History of bilateral breast reduction surgery B/L breast reduction: 11/24/16: Grade view 1, MAC#3, ETT 7.[address] [facility] History of cardiac cath 2014= no stents History of carpal tunnel release Rt History of section x 2 History of cholecystectomy History of colonoscopy History of D&C History of esophagogastroduodenoscopy (EGD) History of tonsillectomy History of tooth extraction History of total abdominal hysterectomy and bilateral salpingo-oophorectomy Family History Sister Family history of diabetes mellitus Mother Family history of diabetes mellitus Brother Family history of diabetes mellitus Social History Preferred Language: Welsh Communication Ability: Effective Remelt Operator Required: No Beliefs That Will Affect Care: None Current Living Situation: Spouse Other Information That Helps Us Care for You: No Feels Safe at Home: Yes Safety Concerns: Feels Safe At This Time Smoking Status: Current every day smoker Tobacco Type: cigarettes ; Cigarettes Per Day: 1/2 ppd x 20+ years ; Do You Dip or Chew Tobacco: No ; Second Hand Exposure: Yes (current exposure and as a child) ; Tobacco Cessation Education Requested by Patient: No Hx Alcohol Use: Yes Hx Substance Use: No Physical Exam Physical Exam: Patient is alert and oriented neurologically intact. Results & Data Vital Signs (Past 12 Hours) Vital Signs Temp Pulse Resp BP Pulse Ox 10/16/19 05:38 36.9 C 93 H 20 142/91 H 95
[2019-10-16] MEDS ORDERED: ePHEDrine sulfate 50 MG/ML AMP IV PRN (07:37)
[2019-10-16] MEDS ORDERED: ATROPINE SULFATE 0.1 MG/ML 10ML SYR IV PRN (07:37)
[2019-10-16] MEDS ORDERED: METOCLOPRAMIDE HCL INJ 5 MG/ML 2 ML VIAL IV PRN ×2 (07:37→11:03)
[2019-10-16] MEDS ORDERED: PROMETHAZINE HCL 12.5 MG in SODIUM CHLORIDE 0.9% 50 ML IV PRN ×2 (07:37→11:03)
[2019-10-16] MEDS ORDERED: HYDROmorphone INJ 2 MG/ML SYR/VIAL IV PRN (07:37)
[2019-10-16] MEDS ORDERED: ONDANSETRON INJ 2 MG/ML 2 ML VIAL IV PRN (07:37)
[2019-10-16] MEDS ORDERED: KETAMINE HCL INJ 50 MG/ML 10 ML VIAL ONE (07:57)
[2019-10-16] MEDS ORDERED: HYDROmorphone INJ 2 MG/ML SYR/VIAL ONE (08:11)
[2019-10-16] MEDS ORDERED: ePHEDrine sulfate 50 MG/ML SYR ONE (08:33)
[2019-10-16] MEDS ORDERED: PHENYLEPHRINE 100MCG/ML 5ML SYR ONE (08:33)
[2019-10-16] MEDS ORDERED: FLOSEAL HEMOSTATIC MATRIX 10ML TOP ONE (08:58)
--- NOTE | 2019-10-16 09:08 | Operative Report ---
Post Operative Report Pre & Post Diagnosis Operation Date: 10/16/19 07:45 Pre-Op Diagnosis: Cervical spinal stenosis with radiculopathy Post-Op Diagnosis: Same I identified the patient and participated in the time-out.: Yes Procedure Operation Date: 10/16/19 07:45 Actual Procedures #1 anterior cervical discectomy with bilateral foraminotomies C5-6 C6-7. #2 anterior cervical arthrodesis C5-6 C6-7. #3 placement of 8 mm Spira cage filled with DBM at C5-6 and C6-7. #4 application of 5 complete screws across C5-6 C6- 7. Surgeon Case Walker, Heel Curver Deborah Davidson Estimated Blood Loss 10 Findings Consistent with Post-Op Diagnosis Specimens None Indications This is a 54-year-old female who presents with above-mentioned diagnosis after failing extensive course of nonoperative care is here for surgical intervention. Description of Procedure Patient was met with identified informed consent obtained. Patient was then taken to the operative suite underwent intubation placed in a prone position the Zackery table on top of the Chris frame. All bony prominences well-padded eyes inspected to ensure no external pressure placed upon the peer at this point the anterior cervical spine was prepped and draped in a sterile fashion. With the assistance of fluoroscopy identified the C6 vertebral body transverse incision was placed along the right anterior aspect of the cervical spine overlying this region. Sharp dissection with the assistance of bipolar electrocautery is performed to expose the anterior cervical spine from C5-C7. Self-retaining retractors placed. Then performed a complete discectomy of C5-6 out to the uncovertebral joints bilaterally. Jack distracting pins were utilized to assist in visualization. Removed all posterior annular fibers longitudinal ligament bilateral foraminotomies performed to address all stenosis. Endplates were then burred to subcortical bleeding bone and an 8 mm Spira cage filled with DBM tapped into position. I then proceeded to see 6 7. Again complete discectomy performed out to the uncovertebral bilaterally. Jack distracting pins again utilized. I removed all posterior annular fibers performed bilateral foraminotomies addressing all stenosis. Endplates were then burred to subcortical bleeding bone and a 8 mm spiral cage filled with DBM tapped in position. Distraction apparatus was removed all anterior osteophytes burred to a smooth cortical surface and a campbell plate and screws applied with the assistance of fluoroscopy. The incision was then copiously irrigated explored to ensure no damage to surrounding structures remaining bleeding. 10 round IZABELA drain inserted. The incision was then closed with 2 Vicryl in the fashion of 4 Monocryl for final skin closure. Steri-Strips dressings placed. Patient will continue to PACU stable condition. Please note Deborah Davidson present at the entire procedure involved the patient positioning complex portions of the surgery and final skin closure. Lastly spinal cord monitoring was utilized that the procedure no changes noted. I attest to the content of the Intraoperative Record and any orders documented therein. Any exceptions are noted below.
[2019-10-16] MEDS: fentaNYL citrate 100 MCG/2 ML VIAL IV PRN ×2 (09:32→09:45)
--- NOTE | 2019-10-16 09:54 | Fluoroscopy Report ---
FL cervical 2-3V CLINICAL HISTORY: 54 years-old Female presenting with ACDF C5-C7. TECHNIQUE: 3 fluoroscopic image(s) recorded as part of an intraoperative procedure. COMPARISON: None. FINDINGS/IMPRESSION: Endotracheal tube projects over the upper thoracic trachea. Surgical sponge in place in the anterior soft tissues of the neck. Postsurgical changes of anterior cervical discectomy and fusion of C5-C7. S traightening of normal cervical lordosis. Please see surgical report for further details. Fluoroscopy dosage (mGy): 1.13. Fluoroscopy time: 12.0 seconds. Number or time of high level fluoroscopy (HLF), digital spot, or digital subtraction images: 0. ACT 112: Negative or not required by law. Electronically signed by: Ruel David M.D. 10/16/2019 9:53 AM
[2019-10-16] MEDS: LACTATED RINGER'S 1,000 ML IV SCH ×2 (11:00→19:18)
[2019-10-16] MEDS ORDERED: SOD PHOSPHATE/SOD BIPHOSPHATE ENEMA 132 ML BTL PR PRN (11:03)
[2019-10-16] MEDS ORDERED: NALOXONE HCL 0.4 MG/1 ML VIAL/CARP IV PRN (11:03)
[2019-10-16] MEDS ORDERED: ACETAMINOPHEN 1,000 MG/100 ML VIAL IV PRN (11:03)
[2019-10-16] MEDS ORDERED: DO NOT ADMINISTER PNEUMOCOCCAL VACCINE PRN (11:03)
[2019-10-16] MEDS ORDERED: DEXAMETHASONE SOD PHOSPHATE 8 MG in SYRINGE 0 ML IV PRN (11:03)
[2019-10-16] MEDS ORDERED: FAMOTIDINE 20 MG TAB PO PRN (11:03)
[2019-10-16] MEDS ORDERED: HYDROmorphone INJ 0.5 MG/0.5 ML SYR IV PRN (11:03)
[2019-10-16] MEDS ORDERED: MAGNESIUM HYDROXIDE SUSP 30 ML UDC PO PRN (11:03)
[2019-10-16] MEDS ORDERED: ACETAMINOPHEN 500 MG TAB PO PRN (11:03)
[2019-10-16] MEDS ORDERED: TRAMADOL HCL 50 MG TABLET PO PRN (11:03)
[2019-10-16] MEDS ORDERED: ONDANSETRON 4 MG OD TAB PO PRN (11:03)
[2019-10-16] MEDS ORDERED: ALBUTEROL HFA 8 GM INHALER INH PRN (11:03)
[2019-10-16] MEDS ORDERED: LORazepam 0.5 MG/1 ML VIAL IV PRN (11:03)
[2019-10-16] MEDS ORDERED: HYDROmorphone INJ 1 MG/ML SYRINGE IV PRN (11:03)
[2019-10-16] MEDS ORDERED: LORazepam 0.5 MG TAB PO PRN (11:03)
[2019-10-16] MEDS ORDERED: ALUMINUM/MAGNESIUM SUSP 30 ML UDC PO PRN (11:03)
[2019-10-16] MEDS ORDERED: DO NOT ADMINISTER FLU VACCINE PRN (11:03)
[2019-10-16] MEDS ORDERED: RACEPINEPHRINE 2.25% NEBU SOLN 0.5 ML VIAL INH PRN (11:03)
--- NOTE | 2019-10-16 11:03 | Anesthesiology Progress Note ---
Date of Service October 16, 2019 Anesthesia Post Procedure Vital Signs Vital Signs: Temp Pulse Pulse Resp BP Pulse Ox 10/16/19 10:35 96 H 14 127/65 92 10/16/19 10:25 36.2 C L 95 H 15 127/74 92 10/16/19 10:15 93 H 20 123/65 94 10/16/19 10:05 94 H 18 127/77 93 10/16/19 09:55 96 H 14 138/79 93 10/16/19 09:45 98 H 16 133/82 92 10/16/19 09:35 100 H 16 130/79 95 10/16/19 09:25 99 H 14 133/78 94 10/16/19 09:17 36.2 C L 97 H 18 147/76 H 96 10/16/19 05:38 36.9 C 93 H 20 142/91 H 95 Pain Intensity Posterior Neck: Pain Intensity: 2 Transfer of Care Handoff Completed per policy Notes Mental Status: alert / awake / arousable and participated in evaluation Patient Amnestic to Procedure: Yes Nausea / Vomiting: adequately controlled Pain: adequately controlled Airway Patency, RR, SpO2: stable & adequate BP & HR: stable & adequate Hydration State: stable & adequate Anesthetic Complications: no major complications apparent
[2019-10-16] MEDS ORDERED: GLUCOSE 10 TABS/TUBE PO PRN (12:29)
[2019-10-16] MEDS ORDERED: GLUCOSE 40% GEL 15 GM TUBE PO PRN (12:29)
[2019-10-16] MEDS ORDERED: GLUCAGON FOR INJ 1 MG VIAL SQ PRN (12:29)
[2019-10-16] MEDS ORDERED: CARBOHYDRATES FOR HYPOGLYCEMIA PO PRN (12:29)
[2019-10-16] MEDS ORDERED: DEXTROSE 50% 50 ML SYRINGE IV PRN (12:29)
--- NOTE | 2019-10-16 12:47 | Hospitalist Consultation ---
Date of Consultation October 16, 2019 Assessment & Plan (1) Cervical stenosis of spinal canal: - POD#0 C5-C7 ACDF by Dr. Walker - activity and wound care orders as per ortho - pain control with bowel regimen - PT/OT - monitor H/H for acute blood loss anemia and transfuse blood products PRN (2) Diabetes mellitus, type 2: -Hgb A1c 8.3 09/2019 -Hold home oral agents and Trulicity and utilize Lantus and NovoLog per protocol hospitalized -Monitor closely for hyperglycemia due to Decadron received during surgery (3) HTN (hypertension): -BP controlled, continue HCTZ (4) COPD (chronic obstructive pulmonary disease): -No signs of acute exacerbation -Does not use routine home inhalers (5) GERD (gastroesophageal reflux disease): -Continue PPI and H2 hema (6) DVT prophylaxis: -Teds/SCDs as per spine orthopedics Thank you for this consultation. We will follow the patient with you during their hospital stay. You can reach a member of the [facility] Hospitalist Team 22/05 via pager @ [phone]. Supervising Physician Co-Signing Physician Notes Pt was seen and examined. Agreed with Andree FREEMAN exam, assessment and plan. 54-year-old female with PMH of COPD, DM, HTN and status post C5-C7 ACDF performed today by Dr. Walker. Complaint of pain from the procedure now. No post op complication. Continue pain control as per ortho. PT/OT and fall precaution. BS elevated due to the steroid and Lantus added. Continue insulin sliding scale. Continue monitor BS. Monitor H/H. Will continue follow while in the hospital. MD Stacia History of Present Illness Reason for Consultation: Postop medical management Requesting Physician: Dr. Walker Attending Physician: Dr. Palomo History of Present Illness 54-year-old female who is status post C5-C7 ACDF today by Dr. Walker. Postoperatively, patient is doing well. She is having some incisional pain however reports it is well controlled. Denies difficulty swallowing or throat swelling. No chest pain or shortness of breath. Denies weakness, numbness, tingling to bilateral upper extremities. Denies lightheadedness and dizziness. No abdominal pain or nausea. Resting in bed, eager to have lunch. Allergies Allergy/AdvReac Type Severity Reaction Status Date / Time adhesive Allergy Mild RED WITH Verified 10/16/19 05:48 TAPE Sulfa (Sulfonamide Allergy Unknown UNKNOWN Verified 10/16/19 05:48 Antibiotics) gabapentin AdvReac Unknown MOOD Verified 10/16/19 05:48 CHANGES hydrocodone AdvReac Unknown CHEST PAIN Verified 10/16/19 05:48 Ofqkbpc-Jjp-Yzh Reductase AdvReac Unknown NECK PAIN Verified 10/16/19 05:48 Inhibitor Home Medications Home Medications Medication Instructions Recorded Confirmed Type albuterol sulfate [Ventolin HFA] 1 puff INHALATION Q6H PRN 09/20/19 10/16/19 History aspirin 81 mg PO QAM 09/20/19 10/16/19 History dulaglutide [Trulicity] 1.5 mg SUBCUT WK 09/20/19 10/16/19 History duloxetine 60 mg PO QPM 09/20/19 10/16/19 History empagliflozin [Jardiance] 10 mg PO QAM 09/20/19 10/16/19 History famotidine 40 mg PO HS 09/20/19 10/16/19 History hydrochlorothiazide 25 mg PO QAM 09/20/19 10/16/19 History hydroxyzine HCl 25 mg PO HS 09/20/19 10/16/19 History meloxicam 7.5 mg PO BID 09/20/19 10/16/19 History omeprazole 40 mg PO QAM 09/20/19 10/16/19 History trazodone 50 mg PO HS 09/20/19 10/16/19 History oxycodone 5 mg PO Q6H PRN #14 tab 10/16/19 Rx pregabalin [Lyrica] 25 mg PO TID 10/16/19 10/16/19 History tramadol 50 mg PO Q6H PRN #14 tab 10/16/19 Rx Patient History Medical History COPD (chronic obstructive pulmonary disease) stable Diabetes mellitus, type 2 NIDDM + injectable GERD (gastroesophageal reflux disease) controlled HTN (hypertension) Hyperlipidemia no meds Muscular dystrophy 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 Hong) Obesity Osteoarthritis Temporomandibular joint disorder occasional clicking OKSANA III (vulvar intraepithelial neoplasia III) Surgical History H/O skin graft Lt breast History of appendectomy History of bilateral breast reduction surgery B/L breast reduction: 11/24/16: Grade view 1, MAC#3, ETT 7.5 at [facility] History of cardiac cath 2014= no stents History of carpal tunnel release Rt History of section x 2 History of cholecystectomy History of colonoscopy History of D&C History of esophagogastroduodenoscopy (EGD) History of gynecologic surgery partial vulvectomy History of tonsillectomy History of tooth extraction History of total abdominal hysterectomy and bilateral salpingo-oophorectomy Family History Sister Family history of diabetes mellitus Mother Family history of diabetes mellitus Brother Family history of diabetes mellitus Social History Preferred Language: Cymraes Communication Ability: Effective Nurse Head Required: No Beliefs That Will Affect Care: None Current Living Situation: Spouse Other Information That Helps Us Care for You: No Feels Safe at Home: Yes Safety Concerns: Feels Safe At This Time Smoking Status: Current every day smoker Tobacco Type: cigarettes ; Cigarettes Per Day: 1/2 ppd x 20+ years ; Do You Dip or Chew Tobacco: No ; Second Hand Exposure: Yes (current exposure and as a child) ; Tobacco Cessation Education Requested by Patient: No Hx Alcohol Use: Yes Hx Substance Use: No Review of Systems Review of Systems: ROS per HPI, all other systems reviewed and negative Physical Exam Constitutional: WD/WN, vitals as above Eyes: PERRL, conjunctivae normal, anicteric sclerae ENMT: external ear and nose normal, oropharynx normal Neck: Anterior neck surgical dressing with a small amount of staining Respiratory: normal respiratory effort, lungs clear to auscultation Cardiovascular: Rate/Rhythm: regular rate and regular rhythm Vessels: normal peripheral pulses Extremities: no edema Gastrointestinal (Abdomen): normal bowel sounds, soft, nontender, no hepatosplenomegaly Musculoskeletal: no cyanosis or clubbing, extremities motor strength 5/5 Skin: no rashes, warm and dry Neurologic: PERRL, EOMI, accommodation nl, no face palsy, no dysarthria Psychiatric: A+Ox3, euthymic affect Results & Data Vital Signs (Past 12 Hours) Vital Signs Temp Pulse Pulse Resp BP Pulse Ox 10/16/19 12:00 89 16 113/75 96 10/16/19 11:30 83 16 119/68 97 10/16/19 11:18 89 16 96 10/16/19 11:00 36.4 C L 97 H 16 117/76 92 10/16/19 10:35 96 H 14 127/65 92 10/16/19 10:25 36.2 C L 95 H 15 127/74 92 10/16/19 10:15 93 H 20 123/65 94 10/16/19 10:05 94 H 18 127/77 93 10/16/19 09:55 96 H 14 138/79 93 10/16/19 09:45 98 H 16 133/82 92 10/16/19 09:35 100 H 16 130/79 95 10/16/19 09:25 99 H 14 133/78 94 10/16/19 09:17 36.2 C L 97 H 18 147/76 H 96 10/16/19 05:38 36.9 C 93 H 20 142/91 H 95
[2019-10-16] MEDS: ONDANSETRON INJ 2 MG/ML 2 ML VIAL IV PRN ×2 (13:21→23:44)
[2019-10-16] MEDS: INSULIN GLARGINE SOLOSTAR 100 UNITS/ML 3 ML PEN SC ONE (13:49)
[2019-10-16] MEDS: PREGABALIN 25 MG CAP PO SCH ×2 (14:06→21:45)
[2019-10-16] MEDS ORDERED: [UNRECOGNIZED DRUG - OTHER] SCH (16:00)
[2019-10-16] MEDS: OXYCODONE HCL IR 5 MG TAB (IMMEDIATE RELEASE) PO PRN ×2 (17:27→21:45)
[2019-10-16] MEDS: CEFAZOLIN 2000MG 2,000 MG/15 ML SYR IV SCH ×2 (17:28→23:30)
[2019-10-16] MEDS: INSULIN ASPART 100 UNITS/ML 3 ML PEN SC SCH ×2 (17:32→21:46)
[2019-10-16] MEDS: INSULIN GLARGINE SOLOSTAR 100 UNITS/ML 3 ML PEN SC SCH (18:53)
[2019-10-16] MEDS ORDERED: DULOXETINE HCL 60 MG CAP PO SCH (21:00)
[2019-10-16] MEDS ORDERED: DOCUSATE SODIUM/SENNA 50/8.6MG TAB PO SCH (21:00)
[2019-10-16] MEDS ORDERED: TRAZODONE HCL 50 MG TAB PO SCH (21:00)
[2019-10-16] MEDS ORDERED: FAMOTIDINE 40 MG TABLET PO SCH (21:00)
[2019-10-16] MEDS ORDERED: COUGH DROP (SUGAR FREE) LOZ 24 LOZ/1 BOX BUCCAL ONE (23:38)
[2019-10-17] MEDS ORDERED: POLYETHYLENE (MIRALAX) 17 GM PACK PO SCH (06:00)
[2019-10-17 06:26] LABS: BUN Creatinine Ratio 18.4 (10-20); Calcium 8.5 mg/dl (8.5-10.1); Creatinine Clr Calc Pharmacy 96.6 ml/min; Est GFR (African American) 114.9; Est GFR (Non-African American) 99.2; Hemoglobin 14.1 g/dL (12.0-16.0); Mean Corpuscular Hgb Conc 33.6 g/dL (32-36); Mean Corpuscular Volume 95.5 fL (80-100); Mean Platelet Volume 12.2 fL (7.4-10.4); Platelet Count 129 K/uL (130-400); Platelet Estimate Decreased (Normal); Potassium 3.8 mmol/L (3.5-5.1); RDW Coefficient of Variation 13.9 % (11.5-14.5); RDW Standard Deviation 48.4 fL (36.4-46.3); White Blood Count 8.67 K/uL (4.8-10.8)
[2019-10-17] MEDS: INSULIN GLARGINE SOLOSTAR 100 UNITS/ML 3 ML PEN SC ONE (08:13)
--- NOTE | 2019-10-17 08:20 | Discharge Summary ---
Date of Service October 17, 2019 Admission HPI Per Admitting Provider This is a 54-year-old female presents with chronic persistent neck and arm pain. After failing extensive course of nonoperative care is here for surgical intervention. Admission Exam (Per Admitting) Constitutional WD/WN, vitals as above Eyes normal visual howell by confrontation ENMT external ear and nose normal, oropharynx normal Neck normal visual inspection Respiratory normal respiratory effort Cardiovascular Extremities: normal capillary refill Gastrointestinal (Abdomen) Inspection/Auscultation: abdomen normal to inspection Musculoskeletal no cyanosis or clubbing, extremities motor strength 5/5 Spine: + pain with cervical ROM Extremities: extremities normal to inspection and strength 5/5 throughout Skin no rashes, warm and dry Neurologic patellar DTR's 2+ bilat, sensation intact normal touch/pain/proprioception Psychiatric A+Ox3, euthymic affect Discharge Data Consultations 10/16/19 11:03 Consult Hospitalist Routine Procedures Performed Operation Date: 10/16/19 07:45 Actual Procedures p C5-C7 Anterior Cervical Discectomy and Fusion with Spinal Cord Monitoring - Case Walker DO Hospital Course (1) Cervical stenosis of spinal canal: Patient had an uncomplicated postoperative course status post ACDF. She is being discharged home on postoperative day 1. Denies radicular arm pain. Denies shortness of breath. She is up and ambulatory to the restroom and around the hallways. She is tolerating a soft diet. No other issues. Discharge Instructions ACTIVITY RECOMMENDATIONS: SELF CARE INSTRUCTIONS AFTER CERVICAL FUSIONS 1. No smoking. Smoking drastically decreases the chance of a solid fusion. 2. No bending, lifting more than 5 pounds, or twisting (roll like a log when turning in bed). 3. You may shower 3 days after surgery. Thoroughly dry wound. Do not soak in the tub. 4. Cervical collar: Must be worn at all times including sleeping. You may remove the brace only to bath, eat and if you are sitting in a recliner. 5. Please walk as much as you can for exercise. Gradually increase the distance that you walk as your endurance increases. SPECIAL CARE INSTRUCTIONS: VERY IMPORTANT TO READ AND REVIEW A. Do not take any anti-inflammatory medications (i.e. Indocin, Advil, Aspirin, Naprosyn, Aleve, Motrin, etc.) as these may inhibit the chance of a solid fusion. Tylenol is okay to take. B. Your surgical incision has been closed with a cosmetic suture under the skin that will dissolve in about 6 weeks. In 14 days, you can use a pair of clean scissors and cut the suture that is left outside of the skin at the ends of your incision. C. Complications are uncommon, but please contact us if you have any signs or symptoms of: 1. wound infection (fever higher than 102.5 degrees F, redness, separation of wound, drainage, or increasing pain from the incision) 2. blood clots in legs (pain, swelling, redness and warmth in legs) 3. urinary tract infection (fever higher than 102.5 degrees, burning upon urination or increased frequency of urination) 4. nerve problems (inability to walk on your toes or heels, numbness, loss of bowel or bladder control) 5. any other symptoms that concern you. D. Please call the office at if you have any concerns or questions about your operation or recovery. MANAGING PAIN AFTER SPINAL SURGERY 1. Narcotic medication is intended for short-term use and will be provided for surgical pain. Surgical pain usually lasts for a period of 4-6 weeks. Narcotic medication includes Percocet, Vicodin, Darvocet, Tylenol #3 or Lortab. 2. Longer-term pain is more appropriately treated with non-narcotic medication such as Tylenol ES. 3. Muscle spasm is not appropriately treated with narcotics. Muscle relaxers such as Soma, Flexeril or Skelaxin can be used along with Tylenol ES. 4. Remember that we all live with some "aches and pains". This is not unusual or uncommon after an injury or as we get older. 5. We will provide appropriate medication within the normal guidelines of their prescribed use. We will also be very cautious and aware of potential abuse and extended duration of patients' medication needs. 6. Please allow 2-3 days to process refills. Prescriptions will not be mailed but must be picked up at the office. FOLLOW UP VISIT: Keep your scheduled follow-up appointment. Any questions, please call the office at . Supervising Physician Co-Signing Physician Notes Dr. Case Walker
--- NOTE | 2019-10-17 08:37 | Hospitalist Progress Note ---
Date of Service October 17, 2019 Assessment & Plan (1) Cervical stenosis of spinal canal: POD#1 C5-C7 ACDF by Dr[address] Walker tolerated procedure well EBL: 30ml IZABELA drain:10ml activity and wound care orders as per ortho pain control with bowel regimen PT/OT dvt ppx per ortho, encourage ambulation IZABELA drain to be removed prior to discharge H/H stable at 14.1 and 42.0 (2) Diabetes mellitus, type 2: Hgb A1c 8.3 09/2019 Hold home oral agents and Trulicity and utilize Lantus and NovoLog per protocol hospitalized BSG 105 today resume outpt regimen upon discharge monitor BSG 4x daily, keep log and report to PCP to obtain better control of DM Goal A1C < 7.0 (3) HTN (hypertension): BP controlled, continue HCTZ (4) COPD (chronic obstructive pulmonary disease): No signs of acute exacerbation Does not use routine home inhalers (5) GERD (gastroesophageal reflux disease): Continue PPI and H2 hema (6) Tobacco abuse: encourage smoking cessation (7) DVT prophylaxis: Teds/SCDs as per spine orthopedics Disposition: D/C to home today Follow up: PCP Brian Mackey PA-C upon discharge Pt was seen and examined in collaboration with Dr. Higgins, please see addendum Thank you for this consultation. We will follow the patient with you during their hospital stay. You can reach a member of the [facility] Hospitalist Team 22/05 via pager @ [phone]. Supervising Physician Co-Signing Physician Notes Patient was seen and examined by me, in room E 302, care was coordinated with Sienna Sánchez PA-C. Please see her note for further details, and chronic conditions. Patient is a 54-year-old female, status post ACDF, for cervical stenosis. Tolerated procedure well, postop day 1. Currently she is sitting in bed, comfortable in no acute distress. She is wearing cervical collar. denies any radicular arm pain, or sensory loss. Denies any fevers, chills, chest pain, shortness of breath, palpitations. She is ambulating without much difficulty and tolerating soft diet. Lungs are clear to auscultation bilaterally, no wheezing rhonchi or crackles noted. Heart sounds are regular, no murmurs noted. Abdomen is soft, nontender, nondistended, there is no lower extremity edema. Skin is warm dry, no rashes noted. There is slight hemoglobin drop, which is expected after surgery, also possibly dilutional. There are currently no concerns from medicine standpoint. Please contact us with any questions or concerns, thank you for your consultation. Kennedy Higgins MD Subjective Patient was seen and examined in room 302. Follow-up status post POD #[address] Walker. She feels well this morning. Complains of sore throat and mild neck discomfort, 3/10. "I am going home today, when can I smoke?" She also is concerned when she can eat a regular diet, and not clear liquids. She denies any difficulty swallowing, fever, chills, sweats, lightheadedness, dizziness, chest pain, shortness of breath, emesis, abdominal pain, difficulty with urination. She does have mild nausea and mild coughing. "It is not uncommon for me to call in the morning." Denies any purulent sputum production. Appetite is well. Review of Systems Review of Systems: All systems reviewed & are unremarkable except as noted in HPI & below Physical Exam Physical Exam: Gen: WD/WN, Female, sitting at bedside,NAD, A&O x3 Neck: dressing with serosanguineous drainage, +IZABELA drain, C collar in place HEENT: Normocephalic, atraumatic, conjunctivae moist, sclerae anicteric, mucous membranes moist. Lung: Clear to Auscultation bilaterally, no wheezes/rales/rhonchi Heart: Regular rate, regular rhythm, no murmurs, rubs, or gallops Abdomen: Soft, NT, ND +BS x 4 Extremities: No edema Skin: Warm, no rash, negative turgor. Results & Data Vital Signs (Past 12 Hours) Vital Signs Temp Pulse Resp BP Pulse Ox 10/17/19 07:23 36.7 C 69 16 118/75 93 10/17/19 07:02 76 16 93 10/17/19 05:20 36.6 C 78 16 137/59 L 93 10/17/19 03:38 74 14 91 10/17/19 03:20 36.6 C 88 14 115/76 94 10/17/19 01:20 36.5 C 84 14 113/76 94 10/16/19 23:20 36.5 C 84 14 123/76 93 10/16/19 23:14 80 14 90 10/16/19 21:20 36.7 C 75 16 123/74 94 10/16/19 20:37 36.8 C 76 18 123/70 94 Laboratory Results Short CBC 10/17/19 Range/Units 05:25 WBC 8.67 (4.8-10.8) K/uL Hgb 14.1 (12.0-16.0) g/dL Hct 42.0 (37-47) % Plt Count 129 L (130-400) K/uL BMP 10/17/19 05:25 Sodium 141 Potassium 3.8 Chloride 107 Carbon Dioxide 29 BUN 13 Creatinine 0.68 Glucose 115 H Calcium 8.5 Medications Administered Acetaminophen (Tylenol) 1,000 mg PO Q8H PRN PRN Reason: MILD Pain Rating 1,2,3 Stop: 11/15/19 11:02 Last Admin: 10/16/19 19:38 Dose: 1,000 mg Documented by: [id number] Duloxetine HCl (Cymbalta) 60 mg PO QPM [facility] Stop: 11/15/19 20:59 Last Admin: 10/16/19 21:34 Dose: 60 mg Documented by: [id number] Famotidine (Pepcid) 40 mg PO [facility] Stop: 11/15/19 20:59 Last Admin: 10/16/19 21:35 Dose: 40 mg Documented by: [id number] Hydroxyzine HCl (Vistaril) 25 mg PO [facility] Stop: 11/15/19 20:59 Last Admin: 10/16/19 21:36 Dose: 25 mg Documented by: [id number] Insulin Aspart (Novolog Flexpen) 0 units SC [facility] Stop: 11/15/19 16:29 Last Admin: 10/16/19 21:46 Dose: 2 units Documented by: [id number] Cosigned by: [id number] Admin: 10/16/19 17:32 Dose: 12 units Documented by: [id number] Cosigned by: [id number] Insulin Glargine (Lantus Solostar Pen) 0 - 20 units SC BID [facility]; Protocol Stop: 11/15/19 20:59 Last Admin: 10/16/19 18:53 Dose: 20 units Documented by: [id number] Cosigned by: [id number] Ondansetron HCl (Zofran) 4 mg IV Q6H PRN PRN Reason: Nausea &/or Vomiting Stop: 11/15/19 11:02 Last Admin: 10/16/19 23:44 Dose: 4 mg Documented by: [id number] Admin: 10/16/19 13:21 Dose: 4 mg Documented by: [id number] Oxycodone HCl (Roxicodone Immediate Rel) 5 - 10 mg PO Q4H PRN PRN Reason: Pain Stop: 10/30/19 11:02 Last Admin: 10/16/19 21:45 Dose: 10 mg Documented by: [id number] Admin: 10/16/19 17:27 Dose: 5 mg Documented by: [id number] Polyethylene Glycol (Miralax Powder Packet) 17 gm PO Q6 [facility] Stop: 11/16/19 05:59 Last Admin: 10/17/19 05:31 Dose: Not Given Documented by: [id number] Pregabalin (Lyrica) 25 mg PO TID [facility] Stop: 11/15/19 13:59 Last Admin: 10/16/19 21:45 Dose: 25 mg Documented by: [id number] Admin: 10/16/19 14:06 Dose: 25 mg Documented by: [id number] Senna/Docusate Sodium (Senokot S) 2 tab PO [facility] Stop: 11/15/19 20:59 Last Admin: 10/16/19 21:35 Dose: 2 tab Documented by: [id number] Tramadol HCl (Ultram) 50 - 100 mg PO Q4H PRN PRN Reason: Moderate-Severe pain Stop: 11/15/19 11:02 Last Admin: 10/16/19 13:20 Dose: 100 mg Documented by: [id number] Trazodone HCl (Desyrel) 50 mg PO HS [facility] Stop: 11/15/19 20:59 Last Admin: 10/16/19 21:35 Dose: 50 mg Documented by: [id number] Discontinued Medications Acetaminophen (Tylenol) 1,000 mg PO PREOP [facility] Stop: 10/16/19 18:00 Last Admin: 10/16/19 06:03 Dose: 1,000 mg Documented by: [id number] Bacitracin (Bacitracin) Confirm Administered Dose 50,000 units .ROUTE .STK-MED ONE Stop: 10/16/19 07:08 Last Admin: 10/16/19 08:34 Dose: 50,000 units Documented by: [id number] Celecoxib (Celebrex) 200 mg PO PREOP [facility] Stop: 10/16/19 18:00 Last Admin: 10/16/19 06:03 Dose: 200 mg Documented by: [id number] Fentanyl Citrate (Fentanyl Citrate) 50 mcg IV Q5M PRN PRN Reason: PACU Use Only-Pain Stop: 10/16/19 12:37 Last Admin: 10/16/19 09:45 Dose: 50 mcg Documented by: [id number] Admin: 10/16/19 09:32 Dose: 50 mcg Documented by: [id number] Gabapentin (Neurontin) 900 mg PO [facility] Stop: 10/16/19 18:00 Last Admin: 10/16/19 06:05 Dose: Not Given Documented by: [id number] Hydromorphone HCl (Dilaudid) 0.5 mg IV Q5M PRN PRN Reason: PACU Use Only-Pain Stop: 10/16/19 12:37 Last Admin: 10/16/19 09:59 Dose: 0.5 mg Documented by: [id number] Lactated Ringer's (Lr) 1,000 mls @ 15 mls/hr IV .Q24H [facility] Stop: 10/17/19 05:59 Last Infusion: 10/16/19 07:46 Dose: 0 mls/hr Documented by: [id number] Admin: 10/16/19 06:05 Dose: 15 mls/hr Documented by: [id number] Cefazolin Sodium (Ancef 2000mg) 2,000 mg in 15 mls @ 3.75 mls/min IV PREOP [facility]; Protocol Stop: 10/16/19 18:00 Last Admin: 10/16/19 07:46 Dose: 3.75 mls/min Documented by: [id number] Cefazolin Sodium (Ancef 2000mg) 2,000 mg in 15 mls @ 3.75 mls/min IV Q8H [facility]; Protocol Stop: 10/17/19 00:03 Last Admin: 10/16/19 23:30 Dose: 3.75 mls/min Documented by: [id number] Admin: 10/16/19 17:28 Dose: 3.75 mls/min Documented by: [id number] Lactated Ringer's (Lr) 1,000 mls @ 100 mls/hr IV .Q10H [facility] Stop: 11/15/19 11:59 Last Infusion: 10/17/19 03:20 Dose: 0 mls/hr Documented by: [id number] Admin: 10/16/19 19:18 Dose: 100 mls/hr Documented by: [id number] Infusion: 10/16/19 19:18 Dose: 100 mls/hr Documented by: [id number] Admin: 10/16/19 11:00 Dose: 100 mls/hr Documented by: [id number] Insulin Glargine (Lantus Solostar Pen) 30 units SC [facility] Stop: 10/16/19 13:01 Last Admin: 10/17/19 08:13 Dose: Not Given Documented by: [id number] Menthol (Nice) Confirm Administered Dose 24 isaiah BUCCAL .STK-MED ONE Stop: 10/16/19 23:39 Last Admin: 10/16/19 23:44 Dose: 24 isaiah Documented by: [id number] Miscellaneous (Floseal Hemostatic Matrix 10ml) 10 ml TOP ONCE ONE Stop: 10/16/19 08:59 Last Admin: 10/16/19 11:38 Dose: Not Given Documented by: [id number]
[2019-10-17] MEDS: INSULIN GLARGINE SOLOSTAR 100 UNITS/ML 3 ML PEN SC SCH (08:59)
[2019-10-17] MEDS: INSULIN ASPART 100 UNITS/ML 3 ML PEN SC SCH (08:59)
[2019-10-17] MEDS ORDERED: ASPIRIN 81 MG ECTAB PO SCH (09:00)
[2019-10-17] MEDS ORDERED: PANTOprazole 40 MG TAB PO SCH (09:00)
[2019-10-17] MEDS ORDERED: hydroCHLOROthiazide 25 MG TAB PO SCH (09:00)
[2019-10-17] MEDS: PREGABALIN 25 MG CAP PO SCH (09:04)
[2019-10-18] MEDS ORDERED: bisacodyL 10 MG SUPP PR PRN (09:09)
== END 2019-10-17 11:13 | disposition home or self-care (01) | DRG 473 ==
LOC: ASU 05:14 → 3E 09:21